=== PATIENT | male | born 1990 | race Hispanic/Latino ===

== ENCOUNTER 2018-10-26 08:12 | Emergency (ER) | payer SELFPAY | END 2018-10-26 08:34 | LOC: ERS 08:12 | DX: S60.561A Insect bite (nonvenomous) of right hand, initial encounter (principal); S70.362A Insect bite (nonvenomous), left thigh, initial encounter; S30.860A Insect bite (nonvenomous) of lower back and pelvis, initial encounter; Z87.891 Personal history of nicotine dependence; W57.XXXA Bitten or stung by nonvenomous insect and other nonvenomous arthropods, initial encounter | CPT/HCPCS: 99281 ==

== ENCOUNTER 2018-10-31 09:36 | Emergency (ER) | payer SELFPAY | END 2018-10-31 10:30 | disposition home or self-care (01) | LOC: ERS 09:36 | DX: B86 Scabies (principal); Z87.891 Personal history of nicotine dependence | CPT/HCPCS: 99283 ==